=== PATIENT | male | born 1970 | race Caucasian/White ===

== ENCOUNTER 2020-08-16 19:13 | Emergency (ER) | payer MEDICARE, OTHER ==
[2020-08-16] MEDS ORDERED: IBUPROFEN800 MG PO (20:16)
== END 2020-08-16 20:38 | disposition home or self-care (01) ==
LOC: ER1 19:13
DX: S80.02XA Contusion of left knee, initial encounter (principal); I10 Essential (primary) hypertension; F17.210 Nicotine dependence, cigarettes, uncomplicated; W22.8XXA Striking against or struck by other objects, initial encounter
CPT/HCPCS: 29505; 73562; 99283

== ENCOUNTER 2021-03-17 22:07 | Emergency (ER) | payer MEDICARE ==
[~2021-03-17 22:07] MED LIST: IBUPROFEN800 MG PO
[2021-03-18] MEDS ORDERED: LODINE CAP 300300 MG PO (01:53)
== END 2021-03-18 01:45 | disposition home or self-care (01) ==
LOC: ER1 22:07
DX: M25.561 Pain in right knee (principal); M25.571 Pain in right ankle and joints of right foot; W19.XXXA Unspecified fall, initial encounter
CPT/HCPCS: 73502; 73630; 99283

== ENCOUNTER 2021-09-11 19:12 | Emergency (ER) | payer MEDICARE ==
[~2021-09-11 19:12] MED LIST changes: +LODINE CAP 300300 MG PO
[2021-09-11 20:50] LABS: RED BLOOD COUNT 3.98 M/UL (4.20-5.50); WHITE BLOOD COUNT 7.3 K/UL (4.5-11.0)
[2021-09-11 21:12] LABS: BUN/CREATININE RATIO 16 (0-10)
== END 2021-09-12 01:45 | disposition home or self-care (01) ==
LOC: ER1 19:12
PROVIDERS: Emergency Medicine
DX: R07.9 Chest pain, unspecified (principal); I10 Essential (primary) hypertension
CPT/HCPCS: 71045; 71275; 80053; 82550; 82553; 84484; 85025; 93005; 99285; Q9967